=== PATIENT | female | born 1935 | race Caucasian/White ===

== ENCOUNTER 2017-08-06 18:28 | Emergency (ER) | payer OTHER ==
[~2017-08-06] VITALS: Ht 162.6 cm; Wt 59.1 kg
[~2017-08-06 18:28] MED LIST: ASPI81 PO; SIMV40TA OR
[2017-08-06 18:30] VITALS: BP 184/80; PULSE 62; RESP 20; TEMP 97.7
[2017-08-06] MEDS ORDERED: LISI10TA3 PO (18:47)
[2017-08-06] MEDS ORDERED: ASPI-516 CHEW (18:47)
[2017-08-06] MEDS ORDERED: PLAV75TA29 PO (18:47)
[2017-08-06] MEDS ORDERED: SIMV40TA PO (18:47)
[2017-08-06] MEDS ORDERED: GELATIN 12 MM/7 MM FOAM TOPICAL ONE (19:00)
--- NOTE | 2017-08-06 19:09 | PD ---
HPI Chief Complaint: Laceration/Skin Injury Time Seen by Provider: 18:41 Travel History International Travel<30 days: No Contact w/Intl Traveler<30days: No Traveled to known affect area: No History of Present Illness HPI 82-year-old female here with a skin tear to the left levy which continues to bleed since yesterday. She reports she contused the area on a piece of concrete molding. She did not fall to the ground. There was no head injury of loss of consciousness. Patient is on Plavix. She reports the area continues to bleed therefore she came in for evaluation. She reports mild discomfort at the site of the laceration. Symptom severity is mild. No associating signs or symptoms. PFSH Past Medical History Hx Anticoagulant Therapy: Yes (PLAVIX) Cerebrovascular Accident: Yes Tetanus Vaccination: < 5 Years Influenza Vaccination: No Past Surgical History Surgical History: No Previous Surgery Social History Alcohol Use: No Tobacco Use: No Substance Use: No Allergies-Medications (Allergen,Severity, Reaction): Coded Allergies: No Known Allergies (Verified Adverse Reaction, Unknown, 08/06/17) Reported Meds & Prescriptions Reported Meds & Active Scripts Active Reported Plavix (Clopidogrel Bisulfate) 75 Mg Tab 75 Mg PO DAILY Lisinopril 10 Mg Tab 10 Mg PO DAILY Simvastatin 40 Mg Tab 40 Mg PO HS Aspirin 81 Mg Chew 81 Mg CHEW DAILY Review of Systems Except as stated in HPI: all other systems reviewed are Neg General / Constitutional: No: Fever Eyes: No: Visual changes HENT: No: Headaches Cardiovascular: No: Chest Pain or Discomfort Respiratory: No: Shortness of Breath Gastrointestinal: No: Abdominal Pain Genitourinary: No: Dysuria Musculoskeletal: No: Pain Skin: No Rash Neurologic: No: Weakness Psychiatric: No: Depression Physical Exam Narrative GENERAL: Alert and well-appearing 82-year-old female. Ambulates with a steady gait SKIN: 2 cm flap skin tear to the left levy with minimal bleeding from wound edges HEAD: Normocephalic. Atraumatic EYES: No scleral icterus. No injection or drainage. NECK: Supple CARDIOVASCULAR: Regular rate and rhythm RESPIRATORY: Breath sounds equal bilaterally. No accessory muscle use. GASTROINTESTINAL: Abdomen soft, non-tender, nondistended. MUSCULOSKELETAL: No cyanosis, or edema. See skin note above. No bony tenderness. Data Data Last Documented VS Vital Signs Date Time Temp Pulse Resp B/P (MAP) Pulse Ox O2 Delivery O2 Flow Rate FiO2 08/06/17 18:30 97.7 62 20 184/80 (114) Orders Orders Gelatin 12 Mm/7 Mm Top (Gelfoam 12 Mm/7 (08/06/17 19:00) [facility] Medical Decision Making Medical Screen Exam Complete: Yes Emergency Medical Condition: Yes Differential Diagnosis Skin tear, laceration, bleeding wound Narrative Course 82-year-old female here with a skin tear to her lower extremity which continues to mildly bleed for the last day. She is on Plavix. Extremities neurovascularly intact. There is minimal bleeding noted. Surgicel dressing applied. Hemostasis achieved. Diagnosis Primary Impression: Skin tear Referrals: Primary Care Physician Additional Instructions: Keep the current dressing in place for 24-48 hours. To remove the dressing soak the area in warm water and gently remove. Apply clean dry dressing. Disposition: 01 DISCHARGE HOME Condition: Stable Dee Monahan Aug 06, 2017 19:09
== END 2017-08-06 19:16 | disposition home or self-care (01) ==
LOC: PHEFT 18:28
DX: S81.812A Laceration without foreign body, left lower leg, initial encounter (principal); W26.8XXA Contact with other sharp object(s), not elsewhere classified, initial encounter; Z79.01 Long term (current) use of anticoagulants; Z86.73 Personal history of transient ischemic attack (TIA), and cerebral infarction without residual deficits
CPT/HCPCS: 12001